=== PATIENT | female | born 1945 | race Caucasian/White ===

== ENCOUNTER 2016-12-30 08:43 | Day surgery (SDC) | payer OTHER ==
--- NOTE | ~2016-12-30 | EGD ---
EGD REPORT [facility] [address] [address] NAME: DIDI BOB : [birth year] STATUS : REG [facility] PAT#: [id number] AGE: 71 ADM/REG DATE : 12/30/16 MR#: [id number] REPORT SERV DATE: 12/30/16 DICTATED BY: SABINA PARRA DATE: 12/30/16 REPORT STATUS : Draft TRANSCRIBED BY: [facility] DATE: 12/30/16 Endoscopy Center Patient Name: Didi Bob Date of : 1945 Attending MD: SABINA PARRA MD Procedure Date No Time: 12/30/2016 Procedure: Colonoscopy Indications: Screening for colorectal malignant neoplasm, Last colonoscopy: 2005 Referring MD: JACLYN RAMIREZ Medicines: See the Anesthesia note for documentation of the administered medications Complications: No immediate complications. Procedure: Pre-Anesthesia Assessment: - ASA Grade Assessment: III - A patient with severe systemic disease. After I obtained informed consent, the scope was passed under direct vision. Throughout the procedure, the patient's blood pressure, pulse, and oxygen saturations were monitored continuously. The [id number] was introduced through the anus and advanced to the cecum, identified by appendiceal orifice and ileocecal valve. The colonoscopy was performed without difficulty. The patient tolerated the procedure well. The quality of the bowel preparation was adequate. Findings: The perianal and digital rectal examinations were normal. Diverticula were found in the sigmoid colon and in the descending colon. Internal hemorrhoids were found during retroflexion and were small. A sessile polyp was found in the ascending colon. The polyp was small in size. The polyp was removed with a cold biopsy forceps. Resection and retrieval were complete. Impression: - Diverticulosis in the sigmoid colon and in the descending colon. - Internal hemorrhoids. - One small polyp in the ascending colon. Resected and retrieved. Recommendation: - Patient has a contact number available for emergencies. The signs and symptoms of potential delayed complications were discussed with the patient. Return to normal activities tomorrow. Written discharge instructions were provided to the patient. EGD REPORT [address] [address] NAME: DIDI BOB : [birth year] STATUS : REG [facility] PAT#: [id number] AGE: 71 ADM/REG DATE : 12/30/16 MR#: [id number] REPORT SERV DATE: 12/30/16 DICTATED BY: SABINA PARRA DATE: 12/30/16 REPORT STATUS : Draft TRANSCRIBED BY: [employer] DATE: 12/30/16 - Regular diet. - Continue present medications. - Repeat colonoscopy for surveillance based on pathology results. - FOR YOUR BIOPSY RESULTS: Please go to [email or web address] and register to receive your results via the portal. Your biopsy results will be posted there in about 7 to 10 days. IF you do not see result in 10 days, call office. Procedure Code(s): --- Professional --- 26246, Colonoscopy, flexible, proximal to splenic flexure; with biopsy, single or multiple Diagnosis Code(s): --- Professional --- K64.8, Other hemorrhoids K57.30, Diverticulosis of large intestine without perforation or abscess without bleeding D12.2, Benign neoplasm of ascending colon Z12.11, Encounter for screening for malignant neoplasm of colon CPT copyright 2013 [employer]. All rights reserved. The codes documented in this report are preliminary and upon electrical and instrumentation mechanic review may be revised to meet current compliance requirements. Sabina Parra MD SABINA PARRA MD 12/30/2016 10:08 AM This report has been signed electronically. Number of Addenda: 0 Note Initiated On: 12/30/2016 9:45 AM Scope Withdrawal Time 0 hours 9 minutes 56 seconds [address] [address]
[~2016-12-30 08:43] MED LIST: BIOTIN PO; CO Q-10100 MG PO; DIABET2.5 PO; DIABETA5 PO; FISH-EPA1000 MG PO; GARLIC; GARLIC PO; HYZAAR1 TAB PO; JANUMET1 TA1 PO; LOP25 PO; LOP50 PO; LUTEIN PO; MAGOX4 PO; METHOC750B PO; MULTIPLE VIT PO; NORV10 PO; OCUVITE; OXYCOD PO; POTASSIUM OTC PO; PRILOSEC40 MG PO; TOPXL50 PO; VITAMIN B-121000 MC1 SL; VITAMIN D31000 UNIT PO; ZEAXANTHIN PO; ZITH250 PO
[2017-05-17] MEDS ORDERED: PRAVACHOL40 MG PO (12:02)
[2017-05-17] MEDS ORDERED: B121000P IM (12:03)
[2017-05-17] MEDS ORDERED: VITAMIN B-121000 MC1 PO (14:26)
[2017-05-17] MEDS ORDERED: GARLIC PO (14:28)
[2017-05-18] MEDS ORDERED: DEMA20 PO (06:40)
[2017-05-18] MEDS ORDERED: VITAMIN D31000 UNIT PO (06:44)
== END 2016-12-30 23:59 | disposition home or self-care (01) ==
LOC: DMU 08:43
PROVIDERS: Internal Medicine Gastroenterology
PROC: 0DBK8ZZ Excision of Ascending Colon, Via Natural or Artificial Opening Endoscopic (ICD-10-PCS; principal; 2016-12-30 10:30)
DX: Z12.11 Encounter for screening for malignant neoplasm of colon (principal); K57.30 Diverticulosis of large intestine without perforation or abscess without bleeding; K64.8 Other hemorrhoids; E78.00 Pure hypercholesterolemia, unspecified; K21.9 Gastro-esophageal reflux disease without esophagitis; E11.9 Type 2 diabetes mellitus without complications; J44.9 Chronic obstructive pulmonary disease, unspecified; E66.01 Morbid (severe) obesity due to excess calories; Z88.1 Allergy status to other antibiotic agents; I10 Essential (primary) hypertension; Z88.0 Allergy status to penicillin; Z88.5 Allergy status to narcotic agent; Z79.899 Other long term (current) drug therapy; Z98.890 Other specified postprocedural states; Z98.1 Arthrodesis status; Z90.49 Acquired absence of other specified parts of digestive tract; Z90.710 Acquired absence of both cervix and uterus
CPT/HCPCS: 82962; 88305

== ENCOUNTER 2017-04-03 13:40 | Inpatient (IN) | payer OTHER ==
--- NOTE | ~2017-04-03 | DS ---
Discharge Summary [place] [id number] [place]. [address] NAME: KOJO NOLASOC : 41 STATUS : DIS IN PAT#: [id number] AGE: 71 ADM/REG DATE : 04/03/17 MR#: [id number] REPORT SERV DATE: 04/07/17 DICTATED BY: JAMSHID CASTREJON DATE: 04/06/17 REPORT STATUS : Draft TRANSCRIBED BY: DB DATE: 04/06/17 ADMISSION DATE: 04/03/2017 DISCHARGE DATE: 04/06/2017 DIAGNOSES: 1. Hypoxic respiratory failure, acute. 2. Diastolic congestive heart failure exacerbation. 3. Pulmonary edema. 4. Moderate pulmonary hypertension. 5. History of obstructive sleep apnea. 6. Obesity. 7. Type 2 diabetes. 8. Hypertension. FOLLOWUP: The patient should follow up with her primary care physician in one to two weeks and to follow up with adrenal hyperplasia versus adenoma found on CAT scan performed as an outpatient ordered by her service planner. The patient should follow up with her service planner as scheduled, and to follow up with Dr. Covington, member of the legislative assembly, in two weeks. DISCHARGE MEDICATIONS: Aspirin 81 mg p.o. daily; Coreg 25 mg p.o. b.i.d.; vitamin B12 1000 mcg p.o. at bedtime per home dose; cholecalciferol 1000 units p.o. at bedtime; coenzyme Q10 200 mg p.o. at bedtime; glyburide 5 mg p.o. at bedtime; Zyrtec 10 mg p.o. at bedtime; losartan 100 mg p.o. daily; magnesium oxide 400 mg p.o. at bedtime; multivitamin p.o. daily; omega-3 fatty acid 1 capsule p.o. b.i.d.; Prilosec 40 mg p.o. q.a.m.; Janumet one tablet p.o. b.i.d.; Norvasc 10 mg p.o. q.a.m.; garlic supplement per home dose; Aldactone 25 mg p.o. b.i.d. per Cardiology; DuoNeb inhaled 4 times a day p.r.n.; Tylenol 1000 mg p.o. b.i.d. p.r.n.; artificial tears p.r.n.; and torsemide 20 mg tablet 1/2 tablet p.o. daily and the patient to take an extra 1/2 tablet daily p.r.n. weight increase by 3 pounds. CONSULTATIONS: 1. Cardiology, Dr. Adarsh Turner. 2. Hospitalist, Dr. Alfredo De Dios and Dr. Castrejon. HOSPITAL COURSE: A 71-year-old female with a past medical history of obesity, type 2 diabetes, hypertension, presents with a chief complaint of worsening shortness of breath and dyspnea on exertion. The patient was being followed by her service planner, Dr. Childs, as an outpatient for some of her symptoms for which an echocardiogram was ordered by her service planner as well as an outpatient CT of the chest without contrast. The echocardiogram revealed ejection fraction of 59% with moderate diastolic dysfunction and moderate elevation of pulmonary systolic pressures, and CAT scan of the chest revealed some scarring in the left upper lobe of the lung and significant hypertrophy of the right adrenal gland measuring 1.7 x 1.3 cm low-density mass in the left adrenal, most likely an adrenal adenoma. The patient was admitted to the Hospitalist Service, initially seen by Dr. Alfredo De Dios for acute hypoxic respiratory failure. Also, the patient has BiPAP already being set up by Dr. Pierson [address] [address] NAME: KOJO NOLASCO : 41 STATUS : DIS IN PAT#: [id number] AGE: 71 ADM/REG DATE : 04/03/17 MR#: [id number] REPORT SERV DATE: 04/07/17 DICTATED BY: JAMSHID CASTREJON DATE: 04/06/17 REPORT STATUS : Draft TRANSCRIBED BY: MODDianne DATE: 04/06/17 Amadeo, her service planner, as an outpatient for her obstructive sleep apnea. The patient was diuresed. The patient states that she was attempting to get a scheduled appointment with Dr. Covington, member of the legislative assembly, as an outpatient; however, has not seen that member of the legislative assembly just as yet. She had overall clinical improvement during her hospital stay with diuresing; however, Dr. Covington's service with [facility] was consulted for establishment. The patient was seen by Dr. Adarsh Turner, who changed the patient's metoprolol over to Coreg and initiated Aldactone and also initiated torsemide. The patient also was educated on AHA diet and ADA diet and diabetes management and low-salt diet. The patient's status improved. She was noting to be saturating around 94% on room air at rest; however, still required oxygen with exertion. She was educated on home O2 and refraining from any open flame and O2 being flammable. The patient states that she has used oxygen before on a previous discharge in the past and is well educated on oxygen management. She will require 2 L of home oxygen portable with ambulation at discharge. Also, the patient was educated on the importance of following up with her primary care physician for adrenal gland adenoma versus hyperplasia, which should be followed by her primary care physician for outpatient management/workup. The patient was discharged to home in stable condition, clinically stable and approved also by Cardiology for discharge. All new medications also were explained and educated with the patient. This discharge required greater than 35 minutes. DICTATED BY: Rhea Avelar/DB Jamshid Castrejon M.D. / [id number] CC: Rhea Avelar M.D. John Carter Hemphill, MD TIMOTHY ASHBURN, MD
--- NOTE | ~2017-04-03 | HP ---
History And Physical [place] [id number] [facility] [place]. [address] NAME: KOJO NOLASCO : 41 STATUS : ADM IN PAT#: [id number] AGE: 71 ADM/REG DATE : 04/03/17 MR#: [id number] REPORT SERV DATE: 04/03/17 DICTATED BY: ADRIAN CAMPBELL II DATE: 04/03/17 REPORT STATUS : Draft TRANSCRIBED BY: MODL DATE: 04/03/17 DATE OF ADMISSION: 04/03/2017 CHIEF COMPLAINT: Progressively worsening dyspnea on exertion. HISTORY OF PRESENT ILLNESS: The patient is a 71-year-old female with a history of morbid obesity, diabetes, and hypertension, who presented to [facility] today due to progressively worsening shortness of breath since Tuesday. The patient notes that really over the past year, she has had a slow decline in her exertional dyspnea. Most notably, a sharp decline in the last three months and then Tuesday, she started becoming very short of breath. About a week to week and a half ago, she was being evaluated by her primary care physician, and given her symptoms was concerned for possible heart failure and was noted to have an abnormal chest x-ray. She has had a CT of the chest as well as an echocardiogram done a week or a week and a half ago, and these records are currently unavailable. Chest x-ray in the ER does show diffuse infiltrates or pulmonary edema like pattern and diffuse crackles on exam with mild hypoxemia. The hospitalist service consulted for admission and further evaluation. Otherwise, the patient has noted some lower extremity edema, mild nausea, which she relates to her diabetes but otherwise no chest pain, dizziness, or syncope. No nausea, vomiting, or diarrhea. REVIEW OF SYSTEMS: 10-point review of systems otherwise negative except for HPI. PAST MEDICAL HISTORY: 1. Obesity with a BMI of 43.4. 2. Diabetes mellitus type 2. 3. Hypertension. 4. GERD. 5. Osteoarthritis. PAST SURGICAL HISTORY: Right ankle ORIF, previous C-spine surgery, appendectomy, total hysterectomy, tonsillectomy. HOME MEDICATIONS: Tylenol, DuoNeb, Norvasc, Refresh Tears, aspirin, biotin, Zyrtec, vitamin D3, coenzyme Q10, vitamin B12, DiaBeta, Hyzaar, magnesium oxide, Lopressor, multivitamin, fish oil, Prilosec, potassium, Janumet, vitamin E, garlic and lutein plus zeaxanthin. SOCIAL HISTORY: The patient smoked from the age of 15 to her 40s about a pack a day but has quit for over 20 years. Denies any alcohol or drug use. Currently, she is not working and is otherwise fairly functional, not needing any assistive devices. FAMILY HISTORY: Significant for heart disease in several male first-degree relatives. Her mother of stroke at 92. Brother with a brain tumor. PHYSICAL EXAMINATION: VITAL SIGNS: Blood pressure 169/41, temperature 97.9, pulse 66, respirations 22, and O2 History And Physical [address] [address] NAME: KOJO NOLASCO : [birth year] STATUS : ADM IN [facility]#: [id number] AGE: 71 ADM/REG DATE : 04/03/17 MR#: [id number] REPORT SERV DATE: 04/03/17 DICTATED BY: ADRIAN CAMPBELL II DATE: 04/03/17 REPORT STATUS : Draft TRANSCRIBED BY: DB DATE: 04/03/17 saturation 96% on 2 L. GENERAL: The patient is morbidly obese female, alert and oriented x3. No acute distress. NECK: Supple. Nontender. No lymphadenopathy or thyromegaly. HEENT: Moist mucous membranes. Pupils are equal, round, and reactive to light. Conjunctivae clear. RESPIRATORY: Diffuse crackles bilaterally in all lung mejia. No rhonchi or wheezing. Nonlabored breathing. CARDIOVASCULAR: Regular rate and rhythm. No murmurs, rubs, or gallops. ABDOMEN: Soft, nontender, and nondistended. Normoactive bowel sounds. EXTREMITIES: 1 to 2+ bilaterally lower extremity edema. No cyanosis or clubbing. SKIN: No lesions, rashes, or wounds. NEUROLOGIC: No focal deficits. LABORATORY DATA: WBC 9.3, hemoglobin 12.5, platelets 351. INR 1.1. Sodium 141, potassium 4.2, chloride 106, CO2 28, BUN 19, creatinine 1.02. Glucose 94, calcium 9.3, magnesium 1.9. Troponin less than 0.02. BNP 91.8. ABG; pH 7.43, pCO2 40, pO2 59, bicarb 26.4. ASSESSMENT AND PLAN: The patient is a 71-year-old female with: 1. Acute hypoxic respiratory failure of uncertain etiology, though certainly her chest x- ray appears to be consistent with either a diffuse fibrosis pattern or pulmonary edema. She is morbidly obese. Her BNP is of uncertain significance. She has had a CT and an echocardiogram done already recently within the last week or two, so we will obtain those records and not repeat anything. She does have edema, so we will gently diurese, follow labs and wait for further information from the imaging studies. 2. Morbid obesity. 3. Hypertension. 4. Diabetes mellitus type 2. For the above we will continue her home medications. 5. Lovenox for deep venous thrombosis prophylaxis. 6. Patient is full code. JEG/MODL Adrian Campbell II, MD / [id number] CC: MD Brown Peterson II, M.D.
--- NOTE | ~2017-04-03 | CN ---
Consultation Report [facility] [address] [place]. [address] NAME: KOJO NOLASCO : 41 STATUS : ADM IN PAT#: [id number] AGE: 71 ADM/REG DATE : 04/03/17 MR#: [id number] REPORT SERV DATE: 04/05/17 DICTATED BY: DANGELO TURNER DATE: 04/05/17 REPORT STATUS : Draft TRANSCRIBED BY: MODL DATE: 04/05/17 CARDIOLOGY CONSULTATION DATE OF CONSULTATION: REASON FOR CONSULTATION: Diastolic heart failure. HISTORY: The patient is a 71-year-old white female, who was recently seen by her ekg manager (underlying obstructive sleep apnea/hypoxemia hypopnea) and was told that she was retaining fluid. He suggested a cardiology evaluation and she was to see Dr. Covington in the [facility] office. She states that over the past week, she has had worsening exertional dyspnea, progressive PND, and developing lower extremity edema. She finally decided that she was not going to be able to get through the weekend and came to the emergency room for further evaluation and therapy. She is a former smoker having quit 25 years ago. Prior to this smoked 1 to 1-1/2 packs per day. She states she cannot take statins because of arthralgias and myalgias. She states she has volitionally trying to lose weight and it has gone down from over 300 pounds to round 280 pounds. She has had no syncope or presyncope. She has had no palpitations. She does have underlying hypertension, diabetes, and dyslipidemia (see below). CURRENT HOME MEDICATIONS: Acetaminophen a 1000 b.i.d. p.r.n., albuterol ipratropium nebulizer four times a day p.r.n., amlodipine 10 mg q.a.m., Artificial Tears b.i.d. OU p.r.n., aspirin 81 per day, biotin capsule 5 mg q.a.m., cetirizine 10 at bedtime, cholecalciferol 1000 p.o. at bedtime, Co Q10 100 per day, cyanocobalamin 1000 at bedtime, glyburide 5 mg per day, losartan hydrochlorothiazide 100/12.5 q.a.m., magnesium oxide 400 at bedtime, metoprolol tartrate 50 b.i.d., multivitamins with minerals once a day, Miller-3 fatty acids b.i.d., omeprazole 40 q.a.m., potassium gluconate 99 mg daily, Sitagliptin/metformin one tab b.i.d., vitamin E 400 per day at bedtime, garlic supplement, and lutein/zeaxanthin at bedtime. ALLERGIES OR INTOLERANCES: Mitomycin from Neosporin, bacitracin from Neosporin, polymyxin B from Neosporin, and penicillin (rash and hives). SOCIAL HISTORY: She is and has two children, one who lives in the area. She has a granddaughter who is about to give to her first great grandchild in five weeks. She does not use street drugs. Does not ingest ethanol containing beverages. She retired as a school structural ironworker. FAMILY HISTORY: Mother had a stroke. She had uncles with coronary artery disease. Neither her father mother however had coronary artery disease. Consultation Report [address] [address] NAME: KOJO NOLASCO : 41 STATUS : ADM IN PAT#: [id number] AGE: 71 ADM/REG DATE : 04/03/17 MR#: [id number] REPORT SERV DATE: 04/05/17 DICTATED BY: DANGELO TURNER DATE: 04/05/17 REPORT STATUS : Draft TRANSCRIBED BY: DB DATE: 04/05/17 PAST MEDICAL HISTORY/REVIEW OF SYSTEMS: Positive for type 2 diabetes mellitus for the last 10 years, morbid obesity with BMI of 46, GERD, osteoarthritis, hypertension. She has undergone sleep study and is in the process of being outfitted for BiPAP. She has a ekg manager who follows this with her. She has had previous right ankle ORIF, previous LS spine surgery by Dr. Aranda, she has had appendectomy, hysterectomy, and tonsillectomy in the remote past. She underwent bilateral mastectomies in 1996 with reconstruction in 1999. She had been on tamoxifen for a number of years. 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 Vo. She had 12 intrathecal ingestions total, the last in November of 2003. As mentioned above, she had a surgery for spondylolisthesis, retrolisthesis, and lumbar stenosis on 02/14/2015, with laminectomy, diskectomy, interbody fusion, and grafting by Dr. Aranda. This procedure took place uneventfully. She has had previous colonoscopy on 12/30/[address] Parra. She did have some sigmoid diverticula, a sessile polyp in the ascending colon, some internal hemorrhoids. There were no malignant findings. PHYSICAL EXAMINATION: GENERAL: 71-year-old white female, pleasant and alert. VITAL SIGNS: At time of evaluation blood pressure 149/67, pulse is 58 and regular, respirations 18. SKIN: No xanthelasmas. HEENT she is normocephalic. There is no pallor. Sclerae are white. NECK: JVD is not elevated. CHEST: There are no crackles. CARDIAC: S1 normal, S2 is physiologic. ABDOMEN: Soft. EXTREMITIES: With +1 edema. NEUROLOGIC: No focal deficits. MUSCULOSKELETAL: No kyphosis. LABORATORY DATA: BUN 24, creatinine 0.47, magnesium 2, white count 9.3, hemoglobin 12.5, BNP on admission 91.8. ECG shows sinus rhythm with a left bundle branch block pattern. Her echocardiogram from [facility] showed LV diastolic dysfunction grade 2, with mild concentric LV hypertrophy, mild RV dilation with PAP systolic pressure at [address] She [address] a [address] of the thorax which shows a right adrenal low-density 1.7 x 1.3 cm mass. There was also felt to be a left adrenal adenoma. IMPRESSION: 1. Diastolic heart disease with exacerbation of symptoms, multiple drivers of this state including her obesity, sleep apnea, diabetes, and possible adrenal hyperplasia versus adenoma. Addition of an aldosterone antagonist will be important for her care. Changing her from metoprolol to her carvedilol will also be important. Ideally she should be on a statin, but states she is unable to take these. 2. Diabetes. She is presently on a regimen of Januvia, metformin, and glyburide. From a Consultation Report [place] [address] [facility] [address] NAME: KOJO NOLASCO : 41 STATUS : ADM IN PAT#: [id number] AGE: 71 ADM/REG DATE : 04/03/17 MR#: [id number] REPORT SERV DATE: 04/05/17 DICTATED BY: DANGELO TURNER DATE: 04/05/17 REPORT STATUS : Draft TRANSCRIBED BY: DB DATE: 04/05/17 cardiac standpoint, a better substitution of glyburide for either one of the GLP-1 agonists or SGLT2 transport inhibitors would be ideal. Unfortunately, cannot start these in-hospital unless they are on these agents prior to admission. She should be changed from metoprolol to carvedilol which is a better beta blocking form for diabetics. She has been instructed with respect to her salt intake and diet. 3. Underlying sleep apnea. This is being treated and pursued via her ekg manager. We will follow her in the clinic setting. PENG/DB Dangelo Turner M.D. / [id number] CC: Rhea Avelar M.D. [facility]
[2017-04-03 14:11] LABS: BASOPHILS 1.1 %; EOSINOPHILS 3.1 %; EOSINOPHILS ABSOLUTE 0.29 10/3/uL (0.0-0.53); ER CBC TAT 0 Hrs 09 Mins; HEMATOCRIT 38.8 % (36.0-48.0); HEMOGLOBIN 12.5 g/dL (12.0-16.0); IMMATURE GRANULOCYTES 0.4 %; IMMATURE GRANULOCYTES ABSOLUTE 0.04 10/3/uL (0.0-0.11); LYMPHOCYTES 29.2 %; LYMPHOCYTES ABSOLUTE 2.72 10/3/uL (0.67-4.30); MANUAL DIFF NO %; MEAN CORPUS HGB CONC 32.2 g/dL (32.0-36.0); MEAN CORPUSCULAR HEMOGLOB 27.9 pg (26.0-34.0); MEAN CORPUSCULAR VOLUME 86.6 fL (80-100); MEAN PLATELET VOLUME 9.4 fL (9.2-13.0); MONOCYTES 6.3 %; MONOCYTES ABSOLUTE 0.59 10/3/uL (0.21-1.20); NEUTROPHILS 59.9 %; NEUTROPHILS ABSOLUTE 5.57 10/3/uL (2.02-8.40); PLATELET COUNT 351 10/3/uL (150-400); RBC DISTRIBUTION WIDTH 16.3 % (12.0-16.0); RED CELL COUNT 4.48 10/6/uL (4.0-5.6); WHITE BLOOD CELLS 9.3 10/3/uL (4.5-10.5)
[2017-04-03 14:12] LABS: INTERNATIONAL NORMAL RATI 1.1 UNITS (-); PARTIAL THROMBO TIME 33.5 SEC (22.5-37.2); PROTIME (NOT ORD) 13.8 SEC (12.0-14.5)
[2017-04-03 14:24] LABS: BUN (BLOOD UREA NITROGEN) 19 MG/DL (6-23); CALCIUM, SERUM 9.3 MG/DL (8.5-10.4); CHEST PAIN PROFILE TAT 0 Hrs 22 Mins; CHLORIDE, SERUM 106 MMOL/L (96-112); CO2 (CARBON DIOXIDE) 28 MMOL/L (24-34); CREATININE 1.02 MG/DL (0.55-1.02); GFR AFRICAN AMERICAN 63 ML/MIN (>=60); GFR NON AFRICAN AMERICAN 55 ML/MIN (>=60); GLUCOSE, SERUM 94 MG/DL (60-99); POTASSIUM, SERUM 4.2 MMOL/L (3.5-5.3); SODIUM, SERUM 141 MMOL/L (135-148); TROPONIN I <0.02 NG/ML (<0.05)
[2017-04-03] MEDS ORDERED: JANUMET1 TA1 PO (16:23)
[2017-04-03] MEDS ORDERED: LOP50 PO (16:23)
[2017-04-03] MEDS ORDERED: HYZAAR1 TAB PO (16:23)
[2017-04-03] MEDS ORDERED: NORV10 PO (16:23)
[2017-04-03] MEDS ORDERED: GARLIC SUPPLEMENT PO (16:24)
[2017-04-03] MEDS ORDERED: PRILOSEC40 MG PO (16:24)
[2017-04-03] MEDS ORDERED: MERIBIN5 MG PO (16:24)
[2017-04-03] MEDS ORDERED: DIABETA5 PO (16:24)
[2017-04-03] MEDS ORDERED: ZYRTEC ALLGY10 MG PO (16:25)
[2017-04-03] MEDS ORDERED: FISH OIL1200 MG PO (16:26)
[2017-04-03] MEDS ORDERED: LUTEIN PO (16:26)
[2017-04-03] MEDS ORDERED: ZEAXANTHIN PO (16:26)
[2017-04-03] MEDS ORDERED: VITAMIN D31000 UNIT PO (16:26)
[2017-04-03] MEDS ORDERED: ASAB PO (16:26)
[2017-04-03] MEDS ORDERED: MULTIVIT/MIN PO (16:27)
[2017-04-03] MEDS ORDERED: CO Q-10100 MG PO (16:27)
[2017-04-03] MEDS ORDERED: POTASSIUM GLUCO99 MG PO (16:27)
[2017-04-03] MEDS ORDERED: MAGOX4 PO (16:28)
[2017-04-03] MEDS ORDERED: VITAMIN B-121000 MC1 SL (16:28)
[2017-04-03] MEDS ORDERED: DUONEB INH (16:28)
[2017-04-03] MEDS ORDERED: VITE PO (16:28)
[2017-04-03] MEDS ORDERED: ACET500CAP PO (16:29)
[2017-04-03] MEDS ORDERED: REFRESH OPH SO0.3 ML OPH (16:29)
[2017-04-03 17:17] LABS: ALLENS TEST Pos; CARBOXYHEMOGLOBIN 2.1 % (0-3); HCO3 (ACTUAL BICARBONATE) 26.4 MEQ/L (23-27); INSTRUMENT SERIAL # 8087; METHEMOGLOBIN 0.2 % (0-3); O2 CONTENT 16.1 VOL% (18-24); PCO2 (CO2 TENSION) 40 MMHG (35-45); PO2 (O2 TENSION) 59 MMHG (79-93); SAMPLE Arterial; pH 7.43 (7.37-7.43)
[2017-04-04 07:39] LABS: BUN (BLOOD UREA NITROGEN) 24 MG/DL (6-23); CALCIUM, SERUM 9.4 MG/DL (8.5-10.4); CHLORIDE, SERUM 102 MMOL/L (96-112); CO2 (CARBON DIOXIDE) 29 MMOL/L (24-34); CREATININE 0.74 MG/DL (0.55-1.02); GFR AFRICAN AMERICAN 93 ML/MIN (>=60); GFR NON AFRICAN AMERICAN 80 ML/MIN (>=60); GLUCOSE, SERUM 170 MG/DL (60-99); POTASSIUM, SERUM 4.3 MMOL/L (3.5-5.3); SODIUM, SERUM 138 MMOL/L (135-148)
[2017-04-05 06:32] LABS: BUN (BLOOD UREA NITROGEN) 24 MG/DL (6-23); CALCIUM, SERUM 9.5 MG/DL (8.5-10.4); CHLORIDE, SERUM 104 MMOL/L (96-112); CO2 (CARBON DIOXIDE) 25 MMOL/L (24-34); CREATININE 0.74 MG/DL (0.55-1.02); GFR AFRICAN AMERICAN 93 ML/MIN (>=60); GFR NON AFRICAN AMERICAN 80 ML/MIN (>=60); SODIUM, SERUM 136 MMOL/L (135-148)
[2017-04-05 06:33] LABS: GLUCOSE, SERUM 95 MG/DL (60-99)
[2017-04-06 05:03] LABS: CALCIUM, SERUM 9.3 MG/DL (8.5-10.4); CHLORIDE, SERUM 100 MMOL/L (96-112); CREATININE 0.82 MG/DL (0.55-1.02); GFR AFRICAN AMERICAN 82 ML/MIN (>=60); GFR NON AFRICAN AMERICAN 71 ML/MIN (>=60); GLUCOSE, SERUM 95 MG/DL (60-99); PHOSPHORUS, SERUM 4.2 MG/DL (2.5-4.5); POTASSIUM, SERUM 3.8 MMOL/L (3.5-5.3); SODIUM, SERUM 139 MMOL/L (135-148)
[2017-04-06 05:08] LABS: ALBUMIN 2.8 G/DL (3.5-5.0); BUN (BLOOD UREA NITROGEN) 29 MG/DL (6-23); CO2 (CARBON DIOXIDE) 31 MMOL/L (24-34)
[2017-04-06] MEDS ORDERED: COREG25 PO (10:35)
[2017-04-06] MEDS ORDERED: COZAAR100 MG PO (10:39)
[2017-04-06] MEDS ORDERED: SPIRO25 PO (10:40)
[2017-04-06] MEDS ORDERED: DEMA20 PO (10:42)
[2017-04-06] MEDS ORDERED: **MEDICINE TO STOP (12:34)
[2017-05-17] MEDS ORDERED: PRAVACHOL40 MG PO (12:02)
[2017-05-17] MEDS ORDERED: B121000P IM (12:03)
[2017-05-17] MEDS ORDERED: VITAMIN B-121000 MC1 PO (14:26)
[2017-05-17] MEDS ORDERED: GARLIC PO (14:28)
[2017-05-18] MEDS ORDERED: DEMA20 PO (06:40)
[2017-05-18] MEDS ORDERED: VITAMIN D31000 UNIT PO (06:44)
== END 2017-04-06 15:18 | disposition home or self-care (01) | DRG 291 ==
LOC: ER 13:40 → 7NO 16:25
PROVIDERS: Emergency Medicine; Internal Medicine
DX: I11.0 Hypertensive heart disease with heart failure (principal); J96.01 Acute respiratory failure with hypoxia; Z68.41 Body mass index [BMI] 40.0-44.9, adult; I27.2 Other secondary pulmonary hypertension; E66.01 Morbid (severe) obesity due to excess calories; I50.33 Acute on chronic diastolic (congestive) heart failure; E11.9 Type 2 diabetes mellitus without complications; G47.33 Obstructive sleep apnea (adult) (pediatric); Z87.891 Personal history of nicotine dependence; Z79.84 Long term (current) use of oral hypoglycemic drugs
CPT/HCPCS: 36600; 71010; 80048; 80069; 82805; 82962; 83735; 83880; 84484; 85025; 85610; 85730; 87040; 93005; 94640; 94660; 99285; A9270-GY; J2930